=== PATIENT | male | born 1970 | race Caucasian/White ===

== ENCOUNTER 2022-09-22 14:19 | Emergency (ER) | payer OTHER ==
[~2022-09-22] VITALS: Ht 180.3 cm; Wt 86.4 kg
[2022-09-22] MEDS ORDERED: ARIP10TA38 PO ×2 (16:01→16:11)
[2022-09-22] MEDS ORDERED: BACITRACIN 0.9 GM PACKET OINTMENT TP ONE (16:15)
[2022-09-22] MEDS ORDERED: IBUPROFEN 600 MG TABLET PO ONE (16:45)
[2022-09-22 17:06] LABS: AMPHET/METH SCREEN,URINE NEGATIVE (NEGATIVE); BARBITURATE SCREEN, URINE NEGATIVE (NEGATIVE); BENZODIAZEPINES SCREEN,URINE NEGATIVE (NEGATIVE); CANNABINOID SCREEN,URINE NEGATIVE (NEGATIVE); COCAINE SCREEN,URINE NEGATIVE (NEGATIVE); METHADONE SCREEN, URINE NEGATIVE (NEGATIVE); OPIATE SCREEN,URINE NEGATIVE (NEGATIVE)
[2022-09-22 17:10] VITALS: BP 121/76
[2022-09-22 17:14] LABS: PHENCYCLIDINE SCREEN,URINE NEGATIVE (NEGATIVE)
== END 2022-09-22 18:14 | disposition home or self-care (01) ==
LOC: EMS 14:19
DX: F31.9 Bipolar disorder, unspecified (principal)
CPT/HCPCS: 99285